=== PATIENT | female | born 1945 | race Caucasian/White ===

== ENCOUNTER 2022-01-20 16:20 | Emergency (ER) | payer OTHER ==
[~2022-01-20] VITALS: Ht 162.6 cm; Wt 82.6 kg
[2022-01-20 16:59] VITALS: BP 128/58
--- NOTE | 2022-01-20 17:35 | NUR ---
76/F PRESENTS TO ED WITH C/O GENERALIZED ITCHING TO HEAD AND BODY SINCE YESTERDAY, STATES HAS SAME SYMPTOMS IN THE HOME. NO RASH NOTED, DENIES USE OF NEW FOOD OR BODY PRODUCTS.
[2022-01-20] MEDS ORDERED: ATA25 PO (18:22)
[2022-01-20 19:05] VITALS: BP 151/78
--- NOTE | 2022-01-20 19:05 | NUR ---
Patient discharged with v/s stable. Written and verbal after care instructions ABOUT PRURITUS given and explained. Patient alert, oriented and verbalized understanding of instructions. Ambulatory with steady gait. All questions addressed prior to discharge. ID band removed. Patient advised to follow up with PMD. Rx of ATARAX HCL given. Patient educated on indication of medication including possible reaction and side effects. Opportunity to ask questions provided and answered.
== END 2022-01-20 19:05 | disposition home or self-care (01) ==
LOC: MED 16:20
DX: L29.9 Pruritus, unspecified (principal); Z79.899 Other long term (current) drug therapy
CPT/HCPCS: 99283